=== PATIENT | female | born 1975 ===

== ENCOUNTER 2023-08-23 10:16 | Inpatient (IN) | payer BC, SELFPAY ==
[2023-08-23] MEDS ORDERED: Ondansetron PF 4 MG/2 ML Vial IVP PRN (14:40)
[2023-08-23] MEDS ORDERED: HumaLOG 300 UNITS/3 ML VIAL SC PRN (14:40)
[2023-08-23] MEDS ORDERED: Ipratropium/Albuterol 3 ML NEB NEB PRN (14:40)
[2023-08-23] MEDS ORDERED: Electrolyte Replacement Protocol 1 EACH IVPB ONE (14:40)
[2023-08-23] MEDS ORDERED: Racepinephrine 2.25% 0.5 ML NEB NEB PRN (14:44)
[2023-08-23] MEDS ORDERED: ALPRAZolam 0.5 MG TAB PO PRN (14:45)
[2023-08-23] MEDS ORDERED: Racepinephrine 2.25% 0.5 ML NEB ONE (14:49)
[2023-08-23] MEDS ORDERED: Electrolyte Replacement Protocol 1 EACH FS SCH (15:00)
[2023-08-23 15:14] LABS: #Monocytes 0.3 thou/uL (0.11-0.59); %Basophils 0.3 % (0.0-1.0); %Lymphocytes 12.4 % (21.0-51.0); %Monocytes 3.1 % (0.0-10.0); %Neutrophils 81.8 % (42.0-75.0); Hematocrit 40.6 % (36.0-47.0); Hemoglobin 13.5 g/dL (12.0-16.0); Mean Corpuscular HGB CONC 33.3 g/dL (32.0-36.0); Mean Corpuscular Hemoglobin 31.2 pg (27.0-31.0); Mean Corpuscular Volume 93.8 fl (78.0-98.0); Mean Platelet Volume 11.2 fL (7.4-10.4); Platelet Count 272 10x3/uL (130-400); RBC Distribution Width 12.5 % (11.5-14.5); Red Blood Cell (RBC) Count 4.33 mill/uL (4.20-5.40)
[2023-08-23] MEDS ORDERED: Phenylephrine 0.25% Nasal Spray 15 ML BOT ONE (15:19)
[2023-08-23] MEDS: Morphine 2 MG/ML VIAL SLOW IVP PRN ×2 (15:35→21:14)
[2023-08-23 15:36] LABS: ALT (SGPT) 16 U/L (8-55); AST (SGOT) 14 U/L (5-34); Alkaline Phosphatase 52 U/L (40-110); Anion Gap 15 mmol/L (10-20); BUN (Urea Nitrogen) 12 mg/dL (7.0-18.7); Bilirubin, Total 0.6 mg/dL (0.2-1.2); Calc. Creatinine Clearance 80 mL/min (70-130); Calcium 8.8 mg/dL (7.8-10.44); Carbon Dioxide 27 mmol/L (22-29); Chloride 101 mmol/L (98-107); Estimated GFR 90; Globulin 3.1 g/dL (2.4-3.5); Glucose 102 mg/dL (70-105); Potassium 3.9 mmol/L (3.5-5.1); Protein, Total 7.1 g/dL (6.0-8.3); Sodium 139 mmol/L (136-145)
[2023-08-23] MEDS: Sodium Chloride 0.9% 1,000 ML IV SCH (15:40)
[2023-08-23] MEDS ORDERED: Electrolyte Replacement Protocol FS PRN (16:30)
[2023-08-23] MEDS: Cyclobenzaprine 10 MG TAB PO SCH (20:56)
[2023-08-23] MEDS: Divalproex Sodium 500 MG ER.TAB PO SCH (20:59)
[2023-08-23] MEDS: Famotidine/PF 20 mg/2ml Vial SLOW IVP SCH (20:59)
[2023-08-23] MEDS: OLANZapine 5 MG TAB PO SCH (21:00)
[2023-08-23] MEDS: ALPRAZolam 1 MG TAB PO PRN (21:01)
[2023-08-23] MEDS: HYDROcodone/Acetaminophen 5/325 mg Tablet PO PRN (21:12)
[2023-08-24] MEDS: Sodium Chloride 0.9% 1,000 ML IV SCH ×2 (04:15→16:27)
[2023-08-24] MEDS: Morphine 2 MG/ML VIAL SLOW IVP PRN ×2 (04:16→08:17)
[2023-08-24 04:21] LABS: #Monocytes 0.6 thou/uL (0.11-0.59); #Neutrophils 5.6 thou/uL (1.40-6.50); %Basophils 0.2 % (0.0-1.0); %Eosinophils 0.5 % (0.0-10.0); %Lymphocytes 24.9 % (21.0-51.0); %Monocytes 6.8 % (0.0-10.0); %Neutrophils 66.1 % (42.0-75.0); Hematocrit 39.4 % (36.0-47.0); Hemoglobin 13.3 g/dL (12.0-16.0); Mean Corpuscular HGB CONC 33.8 g/dL (32.0-36.0); Mean Corpuscular Hemoglobin 31.8 pg (27.0-31.0); Mean Corpuscular Volume 94.3 fl (78.0-98.0); Mean Platelet Volume 11.2 fL (7.4-10.4); Platelet Count 298 10x3/uL (130-400); RBC Distribution Width 12.6 % (11.5-14.5); Red Blood Cell (RBC) Count 4.18 mill/uL (4.20-5.40); White Blood Cell (WBC) Count 8.4 10x3/uL (4.8-10.8)
[2023-08-24 04:44] LABS: ALT (SGPT) 12 U/L (8-55); AST (SGOT) 10 U/L (5-34); Albumin 3.6 g/dL (3.5-5.0); Alkaline Phosphatase 48 U/L (40-110); Anion Gap 10 mmol/L (10-20); BUN (Urea Nitrogen) 21 mg/dL (7.0-18.7); Bilirubin, Total 0.3 mg/dL (0.2-1.2); Calc. Creatinine Clearance 79 mL/min (70-130); Calcium 8.4 mg/dL (7.8-10.44); Carbon Dioxide 28 mmol/L (22-29); Chloride 106 mmol/L (98-107); Estimated GFR 88; Globulin 2.7 g/dL (2.4-3.5); Glucose 83 mg/dL (70-105); Potassium 4.1 mmol/L (3.5-5.1); Protein, Total 6.3 g/dL (6.0-8.3); Sodium 140 mmol/L (136-145)
[2023-08-24 05:04] VITALS: BMI 25.0
[2023-08-24] MEDS: ALPRAZolam 1 MG TAB PO PRN (07:32)
[2023-08-24 08:19] LABS: Free T4 (Free Thyroxine) 1.05 ng/dL (0.70-1.48); Thyroid Stimulating Hormone 0.3291 uIU/mL (0.35-4.94)
[2023-08-24] MEDS: FLUoxetine HCl 10 MG CAP PO SCH (08:20)
[2023-08-24] MEDS: Famotidine/PF 20 mg/2ml Vial SLOW IVP SCH ×2 (08:21→19:54)
[2023-08-24] MEDS: prednisoLONE 10 MG ODT TAB PO SCH (09:04)
[2023-08-24] MEDS: HYDROcodone/Acetaminophen 5/325 mg Tablet PO PRN ×2 (15:03→20:33)
[2023-08-24] MEDS: Divalproex Sodium 500 MG ER.TAB PO SCH (19:55)
[2023-08-24] MEDS: OLANZapine 5 MG TAB PO SCH (20:01)
[2023-08-24] MEDS: Cyclobenzaprine 10 MG TAB PO SCH (20:01)
[2023-08-25] MEDS: Sodium Chloride 0.9% 1,000 ML IV SCH (01:56)
[2023-08-25 07:33] LABS: #Eosinphils 0.1 thou/uL (0.0-0.7); #Monocytes 0.4 thou/uL (0.11-0.59); #Neutrophils 4.3 thou/uL (1.40-6.50); %Basophils 0.3 % (0.0-1.0); %Eosinophils 1.5 % (0.0-10.0); %Lymphocytes 36.1 % (21.0-51.0); %Monocytes 5.3 % (0.0-10.0); %Neutrophils 55.4 % (42.0-75.0); Hematocrit 37.4 % (36.0-47.0); Hemoglobin 12.6 g/dL (12.0-16.0); Mean Corpuscular HGB CONC 33.7 g/dL (32.0-36.0); Mean Corpuscular Hemoglobin 31.9 pg (27.0-31.0); Mean Corpuscular Volume 94.7 fl (78.0-98.0); Mean Platelet Volume 11.2 fL (7.4-10.4); Platelet Count 292 10x3/uL (130-400); RBC Distribution Width 12.2 % (11.5-14.5); Red Blood Cell (RBC) Count 3.95 mill/uL (4.20-5.40); White Blood Cell (WBC) Count 7.8 10x3/uL (4.8-10.8)
[2023-08-25 08:04] LABS: ALT (SGPT) 11 U/L (8-55); AST (SGOT) 9 U/L (5-34); Alkaline Phosphatase 48 U/L (40-110); Anion Gap 9 mmol/L (10-20); BUN (Urea Nitrogen) 23 mg/dL (7.0-18.7); Bilirubin, Total 0.3 mg/dL (0.2-1.2); Calc. Creatinine Clearance 84 mL/min (70-130); Calcium 8.1 mg/dL (7.8-10.44); Carbon Dioxide 29 mmol/L (22-29); Chloride 105 mmol/L (98-107); Estimated GFR 92; Globulin 2.6 g/dL (2.4-3.5); Glucose 90 mg/dL (70-105); Potassium 3.8 mmol/L (3.5-5.1); Protein, Total 5.6 g/dL (6.0-8.3); Sodium 139 mmol/L (136-145)
[2023-08-25 08:32] VITALS: BP 136/87; TEMP 98.2
[2023-08-25] MEDS: Famotidine/PF 20 mg/2ml Vial SLOW IVP SCH (08:33)
[2023-08-25] MEDS: prednisoLONE 10 MG ODT TAB PO SCH (08:52)
[2023-08-25] MEDS: ALPRAZolam 1 MG TAB PO PRN (08:53)
[2023-08-25] MEDS: HYDROcodone/Acetaminophen 5/325 mg Tablet PO PRN ×2 (08:53→15:00)
[2023-08-25] MEDS: FLUoxetine HCl 10 MG CAP PO SCH (08:53)
[2023-08-26] MEDS ORDERED: FLU VACC QS2023-24(6MOS UP)/PF 60 MCG/0.5 ML SYRINGE IM ONE (15:00)
== END 2023-08-25 15:12 | disposition home or self-care (01) | DRG 645 ==
LOC: CCU 13:50 → T4-B 08-24 13:40
PROVIDERS: ADMIT Internal Medicine; ATTEND Internal Medicine
DX: E04.9 Nontoxic goiter, unspecified (principal); F41.9 Anxiety disorder, unspecified; F32.A Depression, unspecified; F43.10 Post-traumatic stress disorder, unspecified; R13.10 Dysphagia, unspecified; Z79.899 Other long term (current) drug therapy; Z90.49 Acquired absence of other specified parts of digestive tract
CPT/HCPCS: 36415; 36416; 71045; 80053; 84439; 84443; 84481; 85025; 93005; 93010; 94640; J1650; J2272; J7050; J7620; S0028